=== PATIENT | male | born 1960 | race Caucasian/White ===

== ENCOUNTER 2018-12-07 10:17 | Day surgery (SDC) | payer OTHER ==
[2018-12-07] MEDS ORDERED: PROPOFOL 20 ML (11:10)
== END 2018-12-07 12:37 | disposition home or self-care (01) ==
LOC: GIL 10:17
DX: Z12.11 Encounter for screening for malignant neoplasm of colon (principal); K64.8 Other hemorrhoids
CPT/HCPCS: 45378